=== PATIENT | male | born 1965 | race Caucasian/White ===

== ENCOUNTER 2023-11-20 10:46 | Emergency (ER) | payer BC, SELFPAY ==
--- NOTE | 2023-11-20 10:56 | ED.CHESTPAIN ---
HPI - Chest Pain General Chief Complaint: Anxiety Stated Complaint: feeling anxious chest pain,BP high Time Seen by Provider: 11/20/23 11:10 Source: patient Mode of arrival: ambulatory Limitations: no limitations History of Present Illness HPI narrative: Bart is a 58-year-old male patient presenting to the clinic today with complaints of left-sided chest discomfort, feeling anxious, and high blood pressure. He does have a history of panic disorder. Has taken Xanax this morning and that has improved his chest pain however he just took his blood pressure medication this morning. Blood pressure at home was 170s. Here in the clinic today blood pressure was 160 systolic. States that the chest pain has subsided and denies any shortness of breath at this time. Related Data Home Medications Medication Instructions Recorded Confirmed alprazolam 0.25 mg tablet mg 11/20/23 amlodipine 2.5 mg tablet mg 11/20/23 losartan 50 mg tablet mg 11/20/23 omeprazole 20 mg capsule,delayed mg 11/20/23 release Allergies Allergy/AdvReac Type Severity Reaction Status Date / Time No Known Allergies Allergy Unverified 03/14/19 08:30 Review of Systems Review of Systems: Pertinent positives per HPI. Patient denies any fever, chills, rash, headache, visual changes, dizziness, cough, runny nose, sore throat, shortness of breath, chest pain, palpitations, nausea, vomiting, diarrhea, constipation, abdominal pain, or any urinary issues. PMFSH Comments At the time of my signature, I reviewed and agree with the nursing past medical, surgical, social, and family history. There is no relevant family history pertinent to the patient complaint. Exam Narrative: General: Well-developed, well nourished, in no apparent distress Head: Normocephalic, atraumatic. Cardio: Regular rate and rhythm, s1 and s2 normal, no murmur appreciated. Resp: Clear to auscultation bilaterally, no rhonchi, rales, wheezing or rubs. Extremities: No deformity, no edema, no cyanosis, capillary refill less than 2 seconds, peripheral pulses palpable and strong. Integumentary: [place], warm, and dry, intact without lesion, no rashes. Psych: Alert oriented x4, anxious mood and affect, good judgment, good insight Course Course Emergency Course: Portions of this record may have been created with voice recognition software. Level of Care: Express Care Visit Vital Signs Vital signs: Vital signs reviewed MDM - Chest Pain MDM Narrative Medical decision making narrative: At the time of visit patient is resting comfortably on the exam table. Patient appears to be nontoxic. EKG was performed shows normal sinus rhythm with a heart rate of 83 beats per minute without ectopy or ST elevation or depression. No T-wave inversion. I suspect patient anxiety is driving his blood pressure up and started having chest pain from this. States he was having some palpitations as well and this has improved. Took Xanax at home and this symptomatic we resolved the symptoms but wanted to come to the Express Care to be checked out. Clonidine 0.1 mg p.o. given in the clinic today to help lower BP and to alleviate additional anxiety. Patient does not smoke, history of high blood pressure, no history of hyperlipidemia, and no history of coronary artery disease. I feel patient can be safely discharged home with observation. Blood pressure after clonidine was 150s systolic. Supportive measures were discussed with the patient and they voiced understanding discharge instructions and agrees to treatment plan. Strict return precautions reviewed Differential Diagnosis Differential diagnosis: Likely stable angina, unstable angina pectoris, atypical chest pain, st elevation myocardial infarction, costochondritis, chest pain and other (Anxiety attack,) ECG Data EKG #1: Attestation: I personally reviewed and interpreted this ECG as follows: ECG completion date: 11/20/23 ECG comp
--- NOTE | 2023-11-20 11:16 | ECG_ITS ---
Measurements Intervals [place] Rate: 83 P: 61 NH: 153 QRS: 45 QRSD: 92 T: 39 QT: 355 QTc: 418 Interpretive Statements SINUS RHYTHM NO PREVIOUS ECG AVAILABLE FOR COMPARISON Electronically Signed On 11-20-2023 15:14:01 [employer]ANTOM[employer]IST by Alejandra García M.D.
[2023-11-20] MEDS: cloNIDine HCL 0.1 MG TABLET PO (11:28)
[2023-11-20 11:58] VITALS: BP 150/93
[2023-11-20 12:01] VITALS: BP 156/87
== END 2023-11-20 11:38 | disposition home or self-care (01) ==
PROVIDERS: Emergency Provider Nurse Practitioner Family
DX: F41.9 Anxiety disorder, unspecified (principal); R07.89 Other chest pain; I10 Essential (primary) hypertension
CPT/HCPCS: 93005; 99213; A9270; G0463

== ENCOUNTER 2023-11-23 00:39 | Emergency (ER) | payer BC, SELFPAY ==
[2023-11-23 00:42] VITALS: BP 153/100; PULSE 110; RESP 20; TEMP 36.6; O2SAT 100
--- NOTE | 2023-11-23 02:37 | PC.NURSE ---
Patient called out for repeat vitals in triage area, no answer
--- NOTE | 2023-11-23 02:48 | PC.NURSE ---
Patient again was called up for repeat vitals, no answer.
== END 2023-11-23 03:20 | disposition left against medical advice (07) ==
LOC: ANHED 03:03
DX: R10.9 Unspecified abdominal pain (principal)
CPT/HCPCS: 99199

== ENCOUNTER 2024-10-19 13:28 | Emergency (ER) | payer BC, SELFPAY ==
[2024-10-19 13:50] VITALS: BP 156/80; PULSE 90; RESP 14; TEMP 36.8; O2SAT 100
--- NOTE | 2024-10-19 14:25 | ED_ITS ---
HPI - Fall General Chief Complaint: Head Injury Stated Complaint: Fall Injury Time Seen by Provider: 10/19/24 14:25 Source: patient, RN notes reviewed and old records reviewed Mode of arrival: ambulatory Limitations: no limitations History of Present Illness HPI Narrative: Patient presents with complaints of head injury that occurred at approximately 11:00 p.m. last night. He reports that he slipped and hit his forehead on the kitchen counter, he has an abrasion to the center of the forehead. No active bleeding. He denies any headache, nausea, vomiting, visual disturbance, dizziness. He voices no other concerns or complaints at this time Related Data Home Medications Medication Instructions Recorded Confirmed alprazolam 0.25 mg tablet 0.25 mg PO DAILY 11/20/23 10/19/24 amlodipine 2.5 mg tablet 2.5 mg PO DAILY 11/20/23 10/19/24 losartan 50 mg tablet 50 mg PO DAILY 11/20/23 10/19/24 omeprazole 20 mg capsule,delayed 20 mg PO DAILY 11/20/23 10/19/24 release Allergies Allergy/AdvReac Type Severity Reaction Status Date / Time No Known Allergies Allergy Verified 10/19/24 13:37 Review of Systems Review of Systems: All systems reviewed & are unremarkable except as noted in HPI and below Constitutional: Constitutional: Reports as per HPI and Reports no additional constitutional complaints ENT: Reports system reviewed and no additional complaints, except as documented Cardiovascular: Cardiovascular: Reports no additional cardiovascular complaints Respiratory: Respiratory: Reports no additional respiratory complaints Gastrointestinal: Gastrointestinal: Reports no additional gastrointestinal complaints Integumentary/Breasts: Skin/Breast: Reports system reviewed and no additional complaints, except as docu and Reports as per HPI Neurologic: Reports system reviewed and no additional complaints, except as documented and Reports as per HPI [facility] Comments At the time of my signature, I reviewed and agree with the nursing past medical, surgical, social, and family history. There is no relevant family history pertinent to the patient complaint. Exam Const: General: cooperative, no acute distress, alert and awake Orientation/consciousness: oriented to person, oriented to place and oriented to time HENMT: Head images: 1. stellate wound, shallow, no active bleeding Mouth: Yes moist mucous membranes Eyes: General: appearance normal, both eyes and all related structures Visual Avery: normal visual avery by confrontation Alignment and Position: alignment normal Periorbital: periorbital findings normal Eyelids: eyelids normal Resp: Effort & Inspection: normal respiratory effort and able to speak in complete sentences Auscultation: clear to auscultation bilaterally, no crackles, no rales, no rhonchi and no wheezes Cardio: Palpation: normal PMI Rate: regular rate Rhythm: regular rhythm Heart sounds: S1 normal heart sound present and S2 normal heart sound present Neuro: General: oriented to person, oriented to place, oriented to time and patient oriented x3 Cranial nerves: Yes CN's II-XII intact bilaterally, Yes Equal, round and reactive pupils present, Yes Bilaterally intact EOM present, Yes Normal facial strength present, Yes facial symmetry and Yes Midline tongue present Speech: normal speech Gait exam (Neuro): Normal gait present Motor exam (neuro): 5/5 motor strength present throughout Sensory Exam: normal sensation Psych: Appearance: grossly normal Thought process: Normal thought process present Insight: Good insight present (Psych) Judgement: Good judgement present (Psych) Course Course Level of Care: Express Care Visit Vital Signs Vital signs: Vital Signs Temperature 98.3 F 10/19/24 13:50 Pulse Rate 90 10/19/24 13:50 Respiratory Rate 14 10/19/24 13:50 Blood Pressure 156/80 H 10/19/24 13:50 Pulse Oximetry 100 10/19/24 13:50 Temperature 98.3 F 10/19/24 13:50 Pulse Rate 90 10/19/24 13:50 Respiratory Rate 14 10/19/24 13:50 Blood Pressure 156/80 H 10/19/24 13:50 Pulse Oximetry 100 10/19/24 13:50 Reviewed Discharge Plan Discharge Clinical Impression: Head injury Qualifiers: Encounter type: initial encounter Qualified Code(s): S09.90XA - Unspecified injury of head, initial encounter Patient Disposition: Home, Self-Care Condition: Stable Instructions: Antibiotic Form, Head Injury (ED) Additional Instructions: Emergency department for any new or worsening symptoms Patient Language: [place] Prescriptions: No Action losartan 50 mg tablet 50 mg PO DAILY amlodipine 2.5 mg tablet 2.5 mg PO DAILY alprazolam 0.25 mg tablet 0.25 mg PO DAILY omeprazole 20 mg capsule,delayed release(DR/EC) 20 mg PO DAILY Follow-up/Referrals: Yordy Sorto [Other] - 3 Days Time of Disposition: 14:43
== END 2024-10-19 14:46 | disposition home or self-care (01) ==
PROVIDERS: Emergency Provider Nurse Practitioner Family
DX: S09.90XA Unspecified injury of head, initial encounter (principal); W01.198A Fall on same level from slipping, tripping and stumbling with subsequent striking against other object, initial encounter; I10 Essential (primary) hypertension; F41.9 Anxiety disorder, unspecified
CPT/HCPCS: 99213; G0463